=== PATIENT | male | born 1950 | race Caucasian/White ===

== ENCOUNTER 2018-08-26 18:49 | Emergency (ER) | payer OTHER, BC ==
[~2018-08-26] VITALS: Ht 172.7 cm; Wt 106.6 kg
[2018-08-26] MEDS ORDERED: NORVASC2.5 M1 PO (18:57)
[2018-08-26] MEDS ORDERED: TAMS0.4C PO (18:57)
[2018-08-26] MEDS ORDERED: TOPROL XL25 M1 PO (18:57)
[2018-08-26] MEDS ORDERED: PROSCAR5 MG PO (18:58)
== END 2018-08-26 21:14 | disposition home or self-care (01) ==
LOC: ER 18:49
DX: B34.9 Viral infection, unspecified (principal); R10.9 Unspecified abdominal pain; R14.3 Flatulence